=== PATIENT | female | born 1985 ===

== ENCOUNTER 2019-01-01 23:43 | Emergency (ER) | payer MEDICAID ==
[2019-01-01 23:57] VITALS: BP 119/72; PULSE 72; RESP 18; TEMP 97.6; O2SAT 100
[2019-01-02 00:44] LABS: BASO % 0.6 % (0.0-2.0); EOS % 1.1 % (0.0-4.0); HEMOGLOBIN 10.3 g/dL (12.0-16.0); LYMPH # 1.2 K/uL (1.0-4.3); MEAN CELL VOLUME 70.5 fl (81.0-99.0); MEAN CORPUSCULAR HEMOGLOBIN 21.8 pg (27.0-31.0); MEAN PLATELET VOLUME 9.7 fl (7.2-11.7); MONO # 0.4 K/uL (0.0-0.8); MONO % 9.7 % (0.0-10.0); NEUT # 2.4 K/uL (1.8-7.0); NEUT % 58.6 % (50.0-75.0); RBC 4.73 Mil/uL (3.80-5.20); RED CELL DISTRIBUTION WIDTH 16.8 % (11.5-14.5); WHITE BLOOD COUNT 4.1 K/uL (4.8-10.8)
[2019-01-02 00:55] LABS: ALB/GLOB RATIO 1.3 (1.0-2.1); ALBUMIN 4.3 g/dL (3.5-5.0); ALT/SGPT 26 U/L (9-52); AST/SGOT 27 U/L (14-36); BLOOD UREA NITROGEN 15 mg/dl (7-17); GFR NON-AFRICAN AMERICAN > 60
--- NOTE | 2019-01-02 00:56 | ED PDOC ---
HPI: Female Pain Time Seen by Provider: 01/01/19 23:59 Chief Complaint (Nursing): Female Genitourinary Chief Complaint (Provider): Female Genitourinary History Per: Patient History/Exam Limitations: no limitations Onset/Duration Of Symptoms: Days (5 - 6) Associated Symptoms: Back Pain, Urinary Symptoms (dysuria and frequency), Other (Abdominal pain) Additional Complaint(s): 33 years old female with history of UTIs and kidney infection presents to ER for evaluation of urinary frequency and dysuria onset 5 to 6 days ago. Patient reports associated back pain that started 2 days ago mostly left sided and diffused abdominal pain that started today with nausea. She states pain comes and goes and reports abdominal pain started 4 hours ago and has been constant since then. Patient thinks this may be kidney infection. She states originally she thought she might have BV, took metrogel with no improvement. Patient reports she is sexually active and denies using condoms. Patient does not want to test for STD. She denies vaginal discharge, hematuria or personal history of kidney stones. Patient is visiting here and has no PMD. LNMP: 12/25/2018 PMD: None provided Past Medical History Reviewed: Historical Data, Nursing Documentation, Vital Signs Vital Signs: Last Vital Signs Temp 97.6 F 01/01/19 23:54 Pulse 72 01/01/19 23:54 Resp 18 01/01/19 23:54 BP 119/72 01/01/19 23:54 Pulse Ox 100 01/01/19 23:54 - Medical History Other PMH: UTIs and kidney infection - Surgical History Surgical History: No Surg Hx - Family History Family History: States: Other Other Family History: Kidney stones - Home Medications Home Medications: Ambulatory Orders Medication Instructions Recorded Cephalexin [Keflex] 500 mg PO TID 10 Days #30 capsule 01/02/19 - Allergies Allergies/Adverse Reactions: Allergies Allergy/AdvReac Type Severity Reaction Status Date / Time No Known Allergies Allergy Verified 01/01/19 23:54 Review of Systems ROS Statement: Except As Marked, All Systems Reviewed And Found Negative Gastrointestinal: Positive for: Nausea, Abdominal Pain (diffused) Genitourinary Female: Positive for: Dysuria, Frequency. Negative for: Hematuria, Vaginal Discharge Musculoskeletal: Positive for: Back Pain Physical Exam - Reviewed Nursing Documentation Reviewed: Yes - Physical Exam Comments: GENERAL APPEARANCE: Patient is awake, alert, oriented x 3, in no acute distress. SKIN: Warm, dry; (-) cyanosis. EYES: (-) conjunctival pallor, (-) scleral icterus. ENMT: Mucous membranes moist. NECK: (-) tenderness, (-) stiffness, (-) lymphadenopathy. CHEST AND RESPIRATORY: (-) rales, (-) rhonchi, (-) wheezes; breath sounds equal bilaterally. HEART AND CARDIOVASCULAR: (-) irregularity; (-) murmur, (-) gallop. ABDOMEN AND GI: (-) distention. normal bowel sounds; [+] mild diffuse tenderness. (-) guarding, (-) rebound, (-) palpable masses, (+) mild left CVA tenderness. EXTREMITIES: (-) deformity, (-) edema, (+) distal pulses. NEURO AND PSYCH: Mental status as above; (-) focal findings. - Laboratory Results Result Diagrams: 01/02/19 00:32 01/02/19 00:32 - ECG O2 Sat by Pulse Oximetry: 100 (RA) Pulse Ox Interpretation: Normal Medical Decision Making Medical Decision Making: Time: 11 MDM: Urine and blood work --Patient reports she had CT before and she prefers not to get one now --Differential includes but not limited to UTI vs. pyelonephritis vs. kidney stone 011 UA shows trace leuks and ketones, kidney function wnl, WBC 4.1, pt reports improved pain but continues with very mild left CVAT, will do CT abd/pelvis to r/o stone vs hydro vs pyelo, and added GC/Chlamydia, pt is agreeable to both 0300 on re eval pt refused CT, reports she is ready to go home, no current CVAT or abdominal tenderness, will cover pt for UTI vs pyelo with Keflex Discussed results, diagnosis, treatment, strict return precaution and f/u with pt who is understanding, in agreement and stable for dc ------ ScribeAttestation: Documented byNaty Gordon, acting as a scribe for MARINA Orozco. Provider ScribeAttestation: All medical record entries made by the Scribe were at my direction and personally dictated by me. I have reviewed the chart and agree that the record accurately reflects my personal performance of the history, physical exam, medical decision making, and the department course for this patient. I have also personally directed, reviewed, and agree with the discharge instructions and disposition. Disposition - Clinical Impression Clinical Impression: Urinary tract infection - Patient ED Disposition Is Patient to be Admitted: No Counseled Patient/Family Regarding: Studies Performed, Diagnosis, Need For Followup, Rx Given - Disposition Referrals: [facility] [Outside] your, doctor [Other] Disposition: Routine/Home Disposition Time: 03:05 Condition: IMPROVED Additional Instructions: Thank you for letting us take care of you today. You were treated for urinary tract infection. The emergency medical care you received today was directed at your acute symptoms. If you were prescribed any medication, please fill it and take as directed. It may take several days for your symptoms to resolve. Return to the Emergency Department if your symptoms worsen, do not improve, or if you have any other problems. Please contact your doctor in 2 days for re-evaluation and follow up / or call one of the physicians/clinics you have been referred to that are listed on the Patient Visit Information form that is included in your discharge packet. Bring any paperwork you were given at discharge with you along with any medications you are taking to your follow up visit. Our treatment cannot replace ongoing medical care by a primary care provider (PCP) outside of the emergency department. Prescriptions: Cephalexin [Keflex] 500 mg PO TID 10 Days #30 capsule Instructions: Kidney Infection, Urinary Tract Infection, Adult (DC) Forms: [employer] ([place]) Print Language: IVORIAN - POA Present On Arrival: None Results - Lab Results Lab Results: 01/02/19 01/02/19 01/02/19 00:56 00:32 00:32 WBC 4.1 L RBC 4.73 Hgb 10.3 L Hct 33.3 L MCV 70.5 L MCH 21.8 L MCHC 31.0 L RDW 16.8 H Plt Count 176 MPV 9.7 Neut % (Auto) 58.6 Lymph % (Auto) 30.0 Cobb % (Auto) 9.7 Eos % (Auto) 1.1 Baso % (Auto) 0.6 Neut # (Auto) 2.4 Lymph # (Auto) 1.2 Cobb # (Auto) 0.4 Eos # (Auto) 0.0 Baso # (Auto) 0.0 Sodium 138 Potassium 3.8 Chloride 105 Carbon Dioxide 24 Anion Gap 13 BUN 15 Creatinine 0.7 Est GFR ( Amer) > 60 Est GFR (Non-Af Amer) > 60 Random Glucose 98 Calcium 9.0 Total Bilirubin 0.5 AST 27 ALT 26 Alkaline Phosphatase 58 Total Protein 7.5 Albumin 4.3 Globulin 3.2 Albumin/Globulin Ratio 1.3 Urine Color Yellow Urine Clarity Slighty-cloudy Urine pH 5.0 Ur Specific [place] 1.027 Urine Protein Negative Urine Glucose (UA) Neg Urine Ketones Trace Urine Blood Negative Urine Nitrate Negative Urine Bilirubin Negative Urine Urobilinogen 0.2-1.0 Ur Leukocyte Esterase Trace Urine RBC (Auto) 3 Urine Microscopic WBC 4 Ur Squamous Epith Cells 5 Urine Bacteria Rare
[2019-01-02 01:09] LABS: SQUAMOUS EPITHIAL 5 /hpf (0-5); URINE BACTERIA RARE (<OCC); URINE BILIRUBIN NEGATIVE (NEGATIVE); URINE BLOOD NEGATIVE (NEGATIVE); URINE CLARITY SLIGHTY-CLOUDY (Clear); URINE COLOR YELLOW (YELLOW); URINE GLUCOSE (UA) NEG (NEGATIVE); URINE LEUKOCYTE ESTERASE TRACE Leu/uL (Negative); URINE PROTEIN NEGATIVE (NEGATIVE); URINE UROBILINOGEN 0.2-1.0 mg/dL (0.2-1.0)
== END 2019-01-02 03:05 | disposition home or self-care (01) ==
LOC: H.ER 23:43
DX: N39.0 Urinary tract infection, site not specified (principal)
CPT/HCPCS: 80053; 81003; 81025; 85025; 87086; 87491; 87591; 96374; 99283; J1885